=== PATIENT | female | born 1945 | race Caucasian/White ===

== ENCOUNTER 2022-01-27 00:31 | Emergency (ER) | payer MEDICARE ==
[~2022-01-27] VITALS: Ht 162.6 cm; Wt 57.2 kg
[2022-01-27 00:36] VITALS: BP_SYST 144
--- NOTE | 2022-01-27 00:50 | NUR ---
PT HERE FOR WOUND CHECK AND WANTING TO HAVE TETANUS VACCINE. PT STATED THAT SHE SCRAPED HER LLE ON GAS PIPE LAST MONDAY. BLEEDING IS CONTROLLED AT THIS TIME. PT ASSISTED TO RM4, AMBULATED WITH STEADY GAIT.
--- NOTE | 2022-01-27 00:54 | NUR ---
PATIENT IN ROOM 4, WAITING TO BE SEEN.
--- NOTE | 2022-01-27 01:05 | NUR ---
ER at bedside examining patient.
[2022-01-27] MEDS ORDERED: DIPHTH,PERTUSS(ACELL),TET VAC 0.5 ML VIAL (Tdap) I.M. ONE (02:15)
[2022-01-27] MEDS ORDERED: AUG875 PO (02:57)
--- NOTE | 2022-01-27 03:08 | NUR ---
Patient given written and verbal discharge instructions and verbalizes understanding. ER MD discussed with patient the results and treatment provided. Patient in stable condition. ID arm band removed. IV catheter removed intact and dressing applied, no active bleeding. Rx of AUGMENTIN given. Patient educated on pain management and to follow up with PMD. Pain Scale . Opportunity for questions provided and answered. Medication side effect fact sheet provided.
== END 2022-01-27 03:08 | disposition home or self-care (01) ==
LOC: SED 00:31
DX: S91.312A Laceration without foreign body, left foot, initial encounter (principal); Z79.899 Other long term (current) drug therapy; W20.8XXA Other cause of strike by thrown, projected or falling object, initial encounter; Y93.89 Activity, other specified; Y92.89 Other specified places as the place of occurrence of the external cause; Y99.8 Other external cause status
CPT/HCPCS: 90715; 99283